=== PATIENT | female | born 1995 | race Caucasian/White ===

== ENCOUNTER 2019-11-20 13:23 | Inpatient (IN) | payer MEDICAID ==
[~2019-11-20] VITALS: Ht 157.5 cm; Wt 69.4 kg
[2019-11-20] MEDS ORDERED: CARBOPROST 250 MCG/ML AMP IM PRN (13:45)
[2019-11-20] MEDS ORDERED: METHYLERGONOVINE 0.2 MG/ML AMP IM PRN (13:45)
[2019-11-20] MEDS ORDERED: AMPICILLIN 2,000 MG in NACL 0.9% MINI-BAG PLUS 100 ML IV SCH (14:00)
[2019-11-20] MEDS ORDERED: AMPICILLIN 2,000 MG VIAL ONE (14:12)
[2019-11-20] MEDS: LACTATED RINGERS 1,000 ML IV SCH ×2 (14:15→22:57)
[2019-11-20 14:25] LABS: BASOPHILS % (AUTO) 0.1 % (0.0-2.0); EOSINOPHILS % (AUTO) 0.4 % (0.0-4.0); HEMATOCRIT 32.8 % (36-48); HEMOGLOBIN 11.1 g/dL (12.0-16.0); LYMPHOCYTES # (AUTO) 2.3 K/uL (2.5-16.5); LYMPHOCYTES % (AUTO) 19.7 % (20.5-51.1); MEAN CORPUSCULAR HEMOGLOBIN 28 pg (27-31); MEAN CORPUSCULAR HGB CONC 34 g/dL (33-37); MEAN CORPUSCULAR VOLUME 83.9 fL (80-94); MONOCYTES # (AUTO) 0.5 K/uL (0.8-1.0); MONOCYTES % (AUTO) 4.7 % (1.7-9.3); NEUTROPHILS # (AUTO) 8.6 K/uL (1.8-7.7); NEUTROPHILS % (AUTO) 75.1 % (42.2-75.2); PLATELET COUNT (AUTO) 186 K/uL (140-450); RED BLOOD CELL COUNT(AUTO) 3.92 MIL/uL (4.20-5.40); WHITE BLOOD COUNT (AUTO) 11.5 K/uL (4.8-10.8)
[2019-11-20] MEDS: MISOPROSTOL 25 MCG TAB VG PRN ×2 (14:26→18:02)
[2019-11-20 14:32] LABS: APPEARANCE,URINE CLEAR (CLEAR); BILIRUBIN,URINE NEGATIVE (NEGATIVE); BLOOD, URINE NEGATIVE (NEGATIVE); COLOR,URINE YELLOW (YELLOW); LEUKOCYTE ESTERASE ,URINE TRACE (NEGATIVE); NITRITE, URINE NEGATIVE (NEGATIVE); UGLUCOSE NEGATIVE (NEGATIVE)
[2019-11-20 14:33] LABS: RBC,URINE NONE SEEN /HPF (0-5); TRICHOMONAS,URINE None Seen /HPF (None Seen); WBC,URINE 0-5 /HPF (0-5); YEAST,URINE None Seen /HPF (None Seen)
[2019-11-20 14:47] VITALS: BP 120/64
[2019-11-20] MEDS ORDERED: INFLUENZA VACCINE QUAD 0.5 ML SYR IMVAC PRN (14:50)
[2019-11-20] MEDS ORDERED: AMPICILLIN 1,000 MG VIAL ONE ×2 (17:55→21:34)
[2019-11-20] MEDS ORDERED: OXYTOCIN 20 UNITS in LACTATED RINGERS 1,000 ML IV SCH (21:20)
[2019-11-20] MEDS: AMPICILLIN 1,000 MG in NACL 0.9% MINI-BAG PLUS 50 ML IV SCH (22:00)
[2019-11-20] MEDS ORDERED: OXYTOCIN 20 UNITS/LR PREMIX 1,000 ML IV ONE (22:43)
[2019-11-20] MEDS ORDERED: EPIDURAL KEYS MC ONE (22:51)
[2019-11-20] MEDS ORDERED: ROPIVACAINE 0.2%/NS PREMIX 200 ML EPI ONE (23:12)
[2019-11-20] MEDS ORDERED: ROPIVACAINE 0.2%/NS PREMIX 100 ML EPI SCH (23:30)
[2019-11-21] MEDS ORDERED: AMPICILLIN 1,000 MG VIAL ONE ×2 (01:34→05:05)
[2019-11-21] MEDS: AMPICILLIN 1,000 MG in NACL 0.9% MINI-BAG PLUS 50 ML IV SCH ×2 (02:00→05:10)
[2019-11-21] MEDS: LACTATED RINGERS 1,000 ML IV SCH (03:36)
[2019-11-21] MEDS ORDERED: MEASLES, MUMPS, AND RUBELLA 1 VIAL SQVAC PRN (05:35)
[2019-11-21] MEDS ORDERED: oxyCODONE/APAP 5/325 MG 1 TAB TAB PO PRN (05:35)
[2019-11-21] MEDS ORDERED: METHYLERGONOVINE 0.2 MG/ML AMP IM PRN (05:35)
[2019-11-21] MEDS ORDERED: TEMAZEPAM 15 MG CAP PO PRN (05:35)
[2019-11-21] MEDS ORDERED: HYDROcodone/APAP 5/325 MG 1 TAB TAB PO PRN (05:35)
[2019-11-21] MEDS ORDERED: BENZOCAINE/MENTHOL 20%-0.5% 60 GM CAN TP PRN (05:35)
[2019-11-21] MEDS ORDERED: OXYTOCIN 10 UNITS/ML VIAL IM PRN (05:35)
[2019-11-21] MEDS ORDERED: IBUPROFEN 800 MG TAB PO PRN (05:35)
--- NOTE | 2019-11-21 08:35 | NUR ---
PATIENT HAS BEEN SCREENED AND CATEGORIZED LOW NUTRITION RISK. PATIENT WILL BE SEEN WITHIN 7 DAYS OF ADMISSION. 11/27/[address]
[2019-11-21] MEDS ORDERED: DOCUSATE SOD/SENNA 50/8.6 MG 1 TAB PO SCH (21:00)
[2019-11-22 06:21] LABS: HEMOGLOBIN 10.6 g/dL (12.0-16.0)
== END 2019-11-23 12:40 | disposition home or self-care (01) | DRG 560 ==
LOC: MLD 13:23 → EDBD 13:23 → OBSVTOIN 14:02 → MFCC 11-21 08:46
PROVIDERS: ADMIT Obstetrics & Gynecology; ATTEND Obstetrics & Gynecology
PROC: 10E0XZZ Delivery of Products of Conception, External Approach (ICD-10-PCS; principal; 2019-11-21)
PROC: 3E0R3BZ Introduction of Anesthetic Agent into Spinal Canal, Percutaneous Approach (ICD-10-PCS; 2019-11-21)
PROC: 00HU33Z Insertion of Infusion Device into Spinal Canal, Percutaneous Approach (ICD-10-PCS; 2019-11-21)
PROC: 10907ZC Drainage of Amniotic Fluid, Therapeutic from Products of Conception, Via Natural or Artificial Opening (ICD-10-PCS; 2019-11-21)
DX: O41.03X0 Oligohydramnios, third trimester, not applicable or unspecified (principal); O36.5930 Maternal care for other known or suspected poor fetal growth, third trimester, not applicable or unspecified; Z37.0 Single live birth; Z3A.38 38 weeks gestation of pregnancy
CPT/HCPCS: 36415; 51702; 59200; 59409; 81001; 85018; 85025; 86592; 86886; 86900; 86901; G0378; J0290; J2590; J2795; J7120